=== PATIENT | female | born 1985 | race African-American/Black ===

== ENCOUNTER 2020-02-28 09:26 | Emergency (ER) | payer SELFPAY ==
[2020-02-28 09:27] VITALS: BP 158/116; PULSE 92; RESP 16; TEMP 36.3; O2SAT 99; BMI 35.4
--- NOTE | 2020-02-28 09:34 | US_ITS ---
WS: [id number] Gallbladder and right upper quadrant ultrasound, 02/28/2020 Clinical Data: abd pain Comparison: None. Findings: The gallbladder shows acoustic shadowing from a stone. The wall measures 0.2 cm with no pericholecyst ic fluid. The gallbladder is contracted but the patient ate 30 minutes before the exam. The common bi le duct is 0.5 cm and there are no intrahepatic ductal abnormalities. Liver shows no cysts, masses or dilated intrahepatic ducts. The pancreas is not obscured by overlying bowel gas and no cyst, pseudocyst, or evidence of pancreati tis is noted. Right kidney measures 9.4 cm and no cyst, masses or hydronephrosis can be seen. The aorta and inferior vena cava show no vascular abnormalities. US/US gall bladder [id number] Impression: 1. Cholelithiasis. 2. Contracted gallbladder.
--- NOTE | 2020-02-28 09:34 | W.ED.ABDPA2 ---
HPI - Abdominal Pain General: Chief Complaint: Abdominal Pain Stated Complaint: ABDOMEN PAIN Time Seen by Provider: 02/28/20 09:27 Source: patient Mode of arrival: ambulatory Limitations: no limitations History of Present Illness: HPI narrative: 34-year-old female states she has been having abdominal pain over the last 6 months. States the pain comes and goes and seems to be worse at night and also after eating. States pain is mainly right upper quadrant. She denies any pain currently. She has no nausea currently. She denies any fevers. She states that last night her pain was a 7 out of 10. MD elicited complaint: abdominal pain Associated Symptoms: Denies chills, dysuria and fever(s) Review of Systems Const: Denies: fever(s), chills, body aches or change in appetite Eyes: Denies: blurry vision or eye discomfort ENMT: Denies: throat pain or dental pain Card: Denies: chest pain Resp: Denies: dyspnea GI: Reports: abdominal pain : Denies: dysuria Musc: Denies: neck pain or back pain Skin/Breast: Denies: rash Neuro: Denies: headache(s) Psych: Denies: depression Doron/Lymph: Denies: easy bruising All/Imm: Denies: urticaria Physical Exam Const: COMMON NORMALS: no acute distress, patient oriented x3 and healthy appearing HENMT: COMMON NORMALS: normocephalic and atraumatic HEAD & SCALP: normocephalic and atraumatic Eye: COMMON NORMALS: Equal, round and reactive pupils present and EOMs intact bilaterally PUPIL: Yes Equal, round and reactive pupils present Neck/C-Spine: COMMON NORMALS: full ROM and supple Chest: COMMONS NORMALS: normal inspection of the chest and normal palpation of entire chest wall Resp: COMMON NORMALS: normal respiratory effort, No retractions, No use of accessory muscles and clear to auscultation bilaterally AUSCULTATION: clear to auscultation bilaterally Cardio: COMMON NORMALS: regular rate, regular rhythm and No murmurs present (Cardio) RATE: regular rate RHYTHM: regular rhythm GI: COMMON NORMALS: Normal to inspection, nondistended, normoactive bowel sounds present, Soft to palpation, non-tender and no masses PALPATION: Yes Soft to palpation Extremity: COMMON NORMALS: normal to inspection and full ROM Neuro: COMMON NORMALS: patient oriented x3, moves all extremities and no focal motor deficits Psych: COMMON NORMALS: mental status grossly normal, Normal thought process present and cooperative THOUGHT PROCESS: Normal thought process present Skin: COMMON NORMALS: no rashes or lesions noted and no wounds GENERAL SKIN EXAM: no rashes or lesions noted Course Vital Signs: Vital signs: Vital Signs Temperature 97.3 F L 02/28/20 09:27 Pulse Rate 92 02/28/20 09:54 Respiratory Rate 15 02/28/20 09:54 Blood Pressure 128/87 02/28/20 09:54 Pulse Oximetry 97 02/28/20 09:54 MDM - Abdominal Pain MDM Narrative: Medical decision making narrative: 34-year-old presents here with abdominal pain and ultrasound showed likely gallstones. Her pain is consistent with biliary colic. She has no signs of cholecystitis. She has been pain-free here and exam here is benign. We will set her up with surgery follow-up and she is to return if worsening. She understands and agrees to plan. Lab Data: Labs: Lab Results 02/28/20 02/28/20 02/28/20 Range/Units 09:39 09:50 09:50 WBC 7.8 (4.0-10.0) 10^3/ uL RBC 5.05 (4.1-5.3) 10^6/u L Hgb 13.4 (11.5-15.3) g/dL Hct 42.6 (37.0-47.0) % MCV 84.4 (81-99) fL MCH 26.5 L (28.0-34.0) pg MCHC 31.5 (30.0-36.0) g/dL RDW 13.4 (12.1-15.1) % Plt Count 357 (130-400) 10^3/c mm MPV 9.7 (7.4-10.4) fL Neut % (Auto) 34.8 % Lymph % (Auto) 47.7 % [place] % (Auto) 7.1 % Eos % (Auto) 9.4 % Baso % (Auto) 0.6 % Neut # (Auto) 2.70 (1.8-7.7) 10^3/u L Lymph # (Auto) 3.7 (0.8-4.8) 10^3/u L [place] # (Auto) 0.6 (0.2-0.9) 10^3/u L Eos # (Auto) 0.7 (0.0-0.8) 10^3/u L Baso # (Auto) 0.1 (0.0-0.1) 10^3/u L Nucleated RBC % (a uto) 0 % Nucleated RBCs # 0.0 /100WBC Sodium 138 (136-145) mmol/L Potassium 4.0 (3.5-5.1) mmol/L Chloride 103 (98-107) mmol/L Carbon Dioxide 24 (22-29) mmol/L Anion Gap 15.0 (5-19) BUN 9 (6-20) mg/dL Creatinine 1.0 H (0.5-0.9) mg/dL GFR Calculation 77.3 L (90-130) mL/min Glucose 115 (65-115) mg/dL Calculated Osmolal ity 286 (285-295) mOsm/k g Calcium 9.0 (8.5-10.5) mg/dL Total Bilirubin 0.3 (0.15-1.2) mg/dL AST 14 (0-32) U/L ALT 9 (0-33) U/L Alkaline Phosphata se 66 (35-105) IU/L Total Protein 8.0 (6.6-8.7) g/dL Albumin 4.1 (3.5-5.2) g/dL Globulin 3.9 (1.3-4.6) g/dL Lipase 13 (13-60) U/L HCG, Qual (Negative) Urine Color Yellow (Yellow) Urine Appearance Clear (CLEAR) Urine pH 6 (5-7) Ur Specific Gravit y 1.015 (1.005-1.030) Urine Protein Neg (Negative) Urine Glucose (UA) Norm (Normal) Urine Ketones Negative (Negative) Urine Blood Neg (Negative) Urine Nitrate Negative (Negative) Urine Bilirubin Neg (Negative) Urine Urobilinogen Neg (Negative) mg/dL Ur Leukocyte Edie ase Negative (Negative) 02/28/20 Range/Units 09:50 WBC (4.0-10.0) 10^3/ uL RBC (4.1-5.3) 10^6/u L Hgb (11.5-15.3) g/dL Hct (37.0-47.0) % MCV (81-99) fL MCH (28.0-34.0) pg MCHC (30.0-36.0) g/dL RDW (12.1-15.1) % Plt Count (130-400) 10^3/c mm MPV (7.4-10.4) fL Neut % (Auto) % Lymph % (Auto) % [place] % (Auto) % Eos % (Auto) % Baso % (Auto) % Neut # (Auto) (1.8-7.7) 10^3/u L Lymph # (Auto) (0.8-4.8) 10^3/u L [place] # (Auto) (0.2-0.9) 10^3/u L Eos # (Auto) (0.0-0.8) 10^3/u L Baso # (Auto) (0.0-0.1) 10^3/u L Nucleated RBC % (a uto) % Nucleated RBCs # /100WBC Sodium (136-145) mmol/L Potassium (3.5-5.1) mmol/L Chloride (98-107) mmol/L Carbon Dioxide (22-29) mmol/L Anion Gap (5-19) BUN (6-20) mg/dL Creatinine (0.5-0.9) mg/dL GFR Calculation (90-130) mL/min Glucose (65-115) mg/dL Calculated Osmolal ity (285-295) mOsm/k g Calcium (8.5-10.5) mg/dL Total Bilirubin (0.15-1.2) mg/dL AST (0-32) U/L ALT (0-33) U/L Alkaline Phosphata se (35-105) IU/L Total Protein (6.6-8.7) g/dL Albumin (3.5-5.2) g/dL Globulin (1.3-4.6) g/dL Lipase (13-60) U/L HCG, Qual Negative (Negative) Urine Color (Yellow) Urine Appearance (CLEAR) Urine pH (5-7) Ur Specific Gravit y (1.005-1.030) Urine Protein (Negative) Urine Glucose (UA) (Normal) Urine Ketones (Negative) Urine Blood (Negative) Urine Nitrate (Negative) Urine Bilirubin (Negative) Urine Urobilinogen (Negative) mg/dL Ur Leukocyte Edie ase (Negative) Discharge Plan Discharge Patient Disposition: Home Clinical Impression: Abdominal pain Qualifiers: Abdominal location: right upper quadrant Qualified Code(s): R10.11 - Right upper quadrant pain Condition: Stable Prescriptions: [place] 5-325 mg tablet 1 tab PO Q6H PRN (Reason: pain) Qty: 14 RF: 0 ondansetron 4 mg tablet,disintegrating 4 mg PO Q6H PRN (Reason: nausea and vomiting) Qty: 14 RF: 0 No Action Probiotic 3 billion cell Capsule 3,000 mmu cells PO BID RF: 0 Discharge Orders: Discharge Order (Routine); Ordered 02/28/20 Ordered By: Dee Sheikh Referrals: Felice Tran MD [Physician] - 1-3 days Discharge Diet: Advance as tolerated Discharge Activity: Resume usual activity Patient Instructions: Abdominal Pain (ED) Coding Level of Care Code ED Ocular Care Technologist for Chg Fwd Exam Comprehensive
[2020-02-28 09:54] VITALS: BP 128/87; PULSE 92; RESP 15; O2SAT 97
[2020-02-28 09:57] LABS: Add Urine Microscopic? NO
[2020-02-28 10:00] LABS: Basophils # 0.1 10^3/uL (0.0-0.1); Basophils % 0.6 %; Eosinophils # 0.7 10^3/uL (0.0-0.8); Eosinophils % 9.4 %; Hematocrit 42.6 % (37.0-47.0); Hemoglobin 13.4 g/dL (11.5-15.3); Lymphocytes # 3.7 10^3/uL (0.8-4.8); Lymphocytes % 47.7 %; Mean Corpuscular HGB Conc 31.5 g/dL (30.0-36.0); Mean Corpuscular Hemoglobin 26.5 pg (28.0-34.0); Mean Corpuscular Volume 84.4 fL (81-99); Mean Platelet Volume 9.7 fL (7.4-10.4); Monocytes # 0.6 10^3/uL (0.2-0.9); Monocytes % 7.1 %; Neutrophils % 34.8 %; Nucleated Red Blood Cells % 0 %; Platelet Count 357 10^3/cmm (130-400); Red Blood Count 5.05 10^6/uL (4.1-5.3); Red Cell Distribution Width 13.4 % (12.1-15.1); White Blood Count 7.8 10^3/uL (4.0-10.0)
[2020-02-28 10:09] LABS: Bilirubin Urine Neg (Negative); Blood Urine Neg (Negative); Glucose Urine UA Norm (Normal); Ketones Urine Negative (Negative); Leukocyte Esterase Urine Negative (Negative); Nitrate Urine Negative (Negative); Protein Urine Neg (Negative); Specific Gravity, Urine 1.015 (1.005-1.030); Urine Appearance Clear (CLEAR); Urine Color Yellow (Yellow); Urobilinogen Urine Neg (Negative); pH Urine 6 (5-7)
[2020-02-28 10:12] LABS: HCG, Serum Qual Negative (Negative)
[2020-02-28 10:17] LABS: Alanine Aminotransferase 9 U/L (0-33); Albumin Level 4.1 g/dL (3.5-5.2); Alkaline Phosphatase 66 IU/L (35-105); Aspartate Amino Transferase 14 U/L (0-32); Blood Urea Nitrogen 9 mg/dL (6-20); Carbon Dioxide 24 mmol/L (22-29); Chloride 103 mmol/L (98-107); Globulin 3.9 g/dL (1.3-4.6); Glomerular Filtration Rate 77.3 mL/min (90-130); Glucose 115 mg/dL (65-115); Lipase 13 U/L (13-60); Osmolality Calculated 286 mOsm/kg (285-295); Sodium 138 mmol/L (136-145); Total Bilirubin 0.3 mg/dL (0.15-1.2)
[2020-02-28 10:35] VITALS: BP 116/88; PULSE 103; RESP 20; O2SAT 97
--- NOTE | 2020-02-28 11:44 | DCPLANNER ---
manager hardware had message to schedule a follow up appointment for patient with Dr. Tran. manager hardware called patient at [phone], was unable to speak with patient at this time, a voicemail was left for patient to return nurse case management phone call.
== END 2020-02-28 10:36 | disposition home or self-care (01) ==
PROVIDERS: Emergency Provider Emergency Medicine
DX: R10.11 Right upper quadrant pain (principal)
CPT/HCPCS: 12345; 76705; 80053; 81003; 83690; 84703; 85025; 99282; 99283

== ENCOUNTER 2021-02-23 11:34 | Emergency (ER) | payer SELFPAY ==
[2021-02-23] VITALS (18 sets, daily range): BP systolic 102–151; BP diastolic 73–107; PULSE 78–81; RESP 16–20; TEMP 36.8; O2SAT 95–100
--- NOTE | 2021-02-23 12:24 | ED_ITS ---
Documented by User: CELIO Brice 02/23/21 12:33 HPI - Abdominal Pain General: Chief Complaint: Abdominal Pain Stated Complaint: RUQ ABD PAIN, BURNING Time Seen by Provider: 02/23/21 12:19 History of Present Illness: HPI narrative: Patient is a 35-year-old female comes to the ED with abdominal pain nausea/vomiting and diarrhea. Patient says symptoms started approximately 2 days ago. She has had symptoms like this in the past and has been told that certain gallbladder. Says the pain worsens after she eats. Says she has vomited multiple times. Her pain is in the right upper quadrant of her abdomen and she rates it a 9 out of 10. She tried taking some Tylenol and Motrin to help with pain but it has not improved the pain. Denies any fever, chills, chest pain, hematuria, dysuria, blood in stool and bloody emesis. Associated Symptoms: Reports diarrhea, nausea and vomiting; Denies chills, constipation, dysuria, fever(s), hematochezia and hematuria Related Data: Date of Last Menstrual Period: 01/28/21 Review of Systems Const: Reports: change in appetite (decreased); Denies: fever(s), chills or fatigue Eyes: Denies: change in vision or eye discomfort ENMT: Denies: throat pain, odynophagia, nasal discharge or nasal congestion Card: Denies: chest pain, palpitations, edema, swelling of feet/ankles, dyspnea on exertion or orthopnea Resp: Denies: dyspnea, productive cough or non-productive cough GI: Reports: abdominal pain, nausea, vomiting and diarrhea; Denies: constipation or hematochezia : Denies: flank pain, dysuria or hematuria Musc: Denies: neck pain, back pain or extremity swelling Skin/Breast: Denies: rash or new lesions Neuro: Denies: headache(s), numbness in extremities or weakness in extremities [facility] Female Reproductive History: Date of last menstrual period: 01/28/21 Physical Exam Const: COMMON NORMALS: patient oriented x3 HENMT: COMMON NORMALS: normocephalic HEAD & SCALP: normocephalic MOUTH: Normal oral and palatal mucosa present THROAT: posterior oropharynx normal and uvula midline Neck/C-Spine: COMMON NORMALS: supple GENERAL: Yes normal visual inspection Resp: COMMON NORMALS: normal respiratory effort, No retractions, No use of accessory muscles and clear to auscultation bilaterally AUSCULTATION: clear to auscultation bilaterally Cardio: COMMON NORMALS: regular rate, regular rhythm, S1 normal heart sound present, S2 normal heart sound present, No gallops present (Cardio), No clicks present (Cardio), No murmurs present (Cardio) and Peripheral pulses 2+ throughout RATE: regular rate RHYTHM: regular rhythm HEART SOUNDS: S1 normal heart sound present and S2 normal heart sound present PERIPHERAL PULSES: Peripheral pulses 2+ throughout GI: COMMON NORMALS: Normal to inspection, nondistended, normoactive bowel sounds present, Soft to palpation and no masses INSPECTION: Yes central obesity PALPATION: Yes Soft to palpation and Yes Tenderness to palpation present (GI) Details: RUQ (positive chery's sign) : COMMON NORMALS: Yes no CVA tenderness BLADDER/KIDNEY EXAM: Yes no CVA t enderness Back/Pelvis: COMMON NORMALS: no CVA tenderness Neuro: COMMON NORMALS: patient oriented x3 GAIT: Yes Normal gait present Course Vital Signs: Vital signs: Vital Signs Temperature 98.3 F 02/23/21 12:11 Pulse Rate 81 02/23/21 17:40 Respiratory Rate 19 H 02/23/21 17:40 Blood Pressure 138/85 02/23/21 17:40 Pulse Oximetry 98 02/23/21 17:40 MDM - Abdominal Pain MDM Narrative: Medical decision making narrative: I performed the initial history physical exam and lab and imaging work-up on patient. And then transferred patient care over to Dr. Gary for further evaluation.-Jd Mojica PA-C Lab Data: Labs: Lab Results 02/23/21 02/23/21 02/23/21 12:15 12:15 12:15 WBC 8.6 10^3/uL 10^3/ uL (4.0-10.0) RBC 5.50 10^6/uL H 10 ^6/uL (4.1-5.3) Hgb 14.6 g/dL g/dL (11.5-15.3) Hct 46.1 % % (37.0-47.0) MCV 83.8 fl fl (81-99) MCH 26.5 pg L pg (28.0-34.0) MCHC 31.7 g/dL g/dL (30.0-36.0) RDW 13.8 % % (12.1-15.1) Plt Count 356 10^3/cmm 10^3 /cmm (130-400) MPV 10.1 fL fL (7.4-10.4) Neut % (Auto) 67.7 % % Lymph % (Auto) 22.1 % % [place] % (Auto) 7.4 % % Eos % (Auto) 2.0 % % Baso % (Auto) 0.4 % % Neut # (Auto) 5.81 10^3/uL 10^3 /uL (1.8-7.7) Lymph # (Auto) 1.9 10^3/uL 10^3/ uL (0.8-4.8) [place] # (Auto) 0.6 10^3/uL 10^3/ uL (0.2-0.9) Eos # (Auto) 0.2 10^3/uL 10^3/ uL (0.0-0.8) Baso # (Auto) 0.0 10^3/uL 10^3/ uL (0.0-0.1) Nucleated RBC % (a uto) 0 % % Nucleated RBCs # 0.0 /100WBC /100W BC Sodium 138 mmol/L mmol/L (136-145) Potassium 4.5 mmol/L mmol/L (3.5-5.1) Chloride 104 mmol/L mmol/L (98-107) Carbon Dioxide 24 mmol/L mmol/L (22-29) Anion Gap 14.5 (5-19) BUN 12 mg/dL mg/dL (6-20) Creatinine 1.0 mg/dL H mg/dL (0.5-0.9) GFR Calculation 76.8 mL/min L mL/ min (90-130) Glucose 110 mg/dL mg/dL (65-115) Calculated Osmolal ity 286 mOsm/kg mOsm/ kg (285-295) Calcium 9.6 mg/dL mg/dL (8.5-10.5) Total Bilirubin 0.3 mg/dL mg/dL (0.15-1.2) AST 15 U/L U/L (0-32) ALT 11 U/L U/L (0-33) Alkaline Phosphata se 83 IU/L IU/L (35-105) Total Protein 7.9 g/dL g/dL (6.6-8.7) Albumin 4.4 g/dL g/dL (3.5-5.2) Globulin 3.5 g/dL g/dL (1.3-4.6) Lipase 16 U/L U/L (13-60) HCG, Qual Negative (Negative) Urine Color Urine Appearance Urine pH Ur Specific Gravit y Urine Protein Urine Glucose (UA) Urine Ketones Urine Blood Urine Nitrate Urine Bilirubin Urine Urobilinogen Ur Leukocyte Edie ase 02/23/21 16:13 WBC RBC Hgb Hct MCV MCH MCHC RDW Plt Count MPV Neut % (Auto) Lymph % (Auto) [place] % (Auto) Eos % (Auto) Baso % (Auto) Neut # (Auto) Lymph # (Auto) [place] # (Auto) Eos # (Auto) Baso # (Auto) Nucleated RBC % (a uto) Nucleated RBCs # Sodium Potassium Chloride Carbon Dioxide Anion Gap BUN Creatinine GFR Calculation Glucose Calculated Osmolal ity Calcium Total Bilirubin AST ALT Alkaline Phosphata se Total Protein Albumin Globulin Lipase HCG, Qual Urine Color Yellow (Yellow) Urine Appearance Clear (CLEAR) Urine pH 5 (5-7) Ur Specific Gravit y 1.010 (1.005-1.030) Urine Protein Neg (Negative) Urine Glucose (UA) Norm (Normal) Urine Ketones Negative (Negative) Urine Blood Neg (Negative) Urine Nitrate Negative (Negative) Urine Bilirubin Neg (Negative) Urine Urobilinogen Norm mg/dL mg/dL (Negative) Ur Leukocyte Edie ase Negative (Negative) Discharge Plan Discharge Patient Disposition: Home Clinical Impression: Biliary colic, Cholelithiasis Condition: Stable Prescriptions: New hydrocodone-acetaminophen 5-325 mg tablet 1 tab PO Q6H PRN (Reason: pain) Qty: 20 RF: 0 Zofran 4 mg tablet 4 mg PO Q6H PRN (Reason: nausea and vomiting) Qty: 20 RF: 0 No Action hydrocodone-acetaminophen [[place]] 5-325 mg tablet 1 tab PO Q6H PRN (Reason: pain) Qty: 14 RF: 0 aspirin 325 mg Tablet 325 mg PO Q4H PRN (Reason: Pain) RF: 0 Nexium 20 mg Capsule,Delayed Release(Dr/Ec) 20 mg PO DAILY RF: 0 Probiotic 2 cap PO DAILY RF: 0 Discharge Orders: Discharge ED (Routine); Ordered 02/23/21 Ordered By: Marcio Gary Discharge Diet: As Directed Patient Instructions: Opioid Safety Activity Restrictions/Additional Instructions: customer marketing manager will make arrangements for you to have a HIDA scan and evaluation by a general surgeon. Coding Level of Care Code ED Busgirl for Chg Fwd Exam Comprehensive Documented by User: Marcio Gary, 02/24/21 06:40 HPI - Abdominal Pain General: Chief Complaint: Abdominal Pain Stated Complaint: RUQ ABD PAIN, BURNING Time Seen by Provider: 02/23/21 12:19 History of Present Illness: HPI narrative: 35-year-old female presents emergency room complaint of epigastric right upper quadrant pain. States she is had this for the last several months a year ago she had a ultrasound of her gallbladder which showed cholelithiasis but no evidence of acute cholecystitis she is not pursued any further she noted that greasy foods seem to trigger it not eating does seem to relieve it is also accompanied by diarrhea and vomiting she denies any hematochezia melena hematemesis. She is not having dysuria urgency or frequency no fevers. MD elicited complaint: abdominal pain Onset (ago): month(s) Pain Consistency: intermittent Location: Epigastric and RUQ Severity: moderate Quality: cramping Radiation: RUQ Exacerbating factors: eating ([place] foods) Relieving factors: nothing Associated Symptoms: Reports bloating, change in bowel habits, nausea and vomiting; Denies anorexia, belching, change in stool character, chills, coffee ground emesis, constipation, GI cramping, diarrhea, dyspepsia, dysuria, excessive flatus, fever(s), heartburn, hematochezia, hematuria, hematemesis, fecal incontinence, loose stools, melena, poor appetite and syncope Review of Systems Const: Denies: fever(s) or chills ENMT: Denies: throat pain, ear or mastoid pain, nasal discharge or nasal congestion Card: Denies: syncope Resp: Denies: dyspnea, productive cough or non-productive cough GI: Reports: nausea, vomiting, bloating and change in bowel habits; Denies: hematemesis, coffee ground emesis, heartburn, diarrhea, constipation, GI cramping, belching, excessive flatus, fecal incontinence, change in stool character, hematochezia or melena : Denies: dysuria or hematuria Skin/Breast: Denies: rash or pruritus Physical Exam Const: COMMON NORMALS: no acute distress GENERAL APPEARANCE: cooperative and comfortable ORIENTATION/CONSCIOUSNESS: Yes awake, Yes oriented to person, Yes oriented to place and Yes oriented to time HENMT: COMMON NORMALS: normocephalic, atraumatic and hearing grossly normal bilaterally HEAD & SCALP: normocephalic and atraumatic Neck/C-Spine: COMMON NORMALS: no JVD Resp: COMMON NORMALS: normal respiratory effort, No retractions, No use of accessory muscles and clear to auscultation bilaterally AUSCULTATION: clear to auscultation bilaterally Cardio: COMMON NORMALS: no JVD, regular rate, regular rhythm and No murmurs present (Cardio) RATE: regular rate RHYTHM: regular rhythm GI: PALPATION: Yes Tenderness to palpation present (GI) Details: RUQ and No Guarding due to palpation present (GI) Extremity: COMMON NORMALS: normal to inspection, capillary refill normal, no clubbing, cyanosis or edema, no calf tenderness and no pedal edema Neuro: SENSORIUM/ORIENTATION: Yes oriented to person, Yes oriented to place and Yes oriented to time Skin: COMMON NORMALS: no rashes or lesions noted GENERAL SKIN EXAM: no rashes or lesions noted Course Vital Signs: Vital signs: Vital Signs Temperature 98.3 F 02/23/21 12:11 Pulse Rate 81 02/23/21 17:40 Respiratory Rate 19 H 02/23/21 17:40 Blood Pressure 138/85 02/23/21 17:40 Pulse Oximetry 98 02/23/21 17:40 MDM - Abdominal Pain MDM Narrative: Medical decision making narrative: CT shows gallstones without any definitive obstruction but there is dilation of the common bile duct not present previously. MRCP done there is no acute cholecystitis and there is no choledocholithiasis. Patient certainly does have cholelithiasis I suspect she has some biliary dysfunction. We will can go ahead and discharge her home bland diet set up to see general surgery as a follow-up and will also however use promethazine and hydrocodone as needed. customer marketing manager will make arrangements. Lab Data: Labs: Lab Results 02/23/21 02/23/21 02/23/21 12:15 12:15 12:15 WBC 8.6 10^3/uL 10^3/ uL (4.0-10.0) RBC 5.50 10^6/uL H 10 ^6/uL (4.1-5.3) Hgb 14.6 g/dL g/dL (11.5-15.3) Hct 46.1 % % (37.0-47.0) MCV 83.8 fl fl (81-99) MCH 26.5 pg L pg (28.0-34.0) MCHC 31.7 g/dL g/dL (30.0-36.0) RDW 13.8 % % (12.1-15.1) Plt Count 356 10^3/cmm 10^3 /cmm (130-400) MPV 10.1 fL fL (7.4-10.4) Neut % (Auto) 67.7 % % Lymph % (Auto) 22.1 % % [place] % (Auto) 7.4 % % Eos % (Auto) 2.0 % % Baso % (Auto) 0.4 % % Neut # (Auto) 5.81 10^3/uL 10^3 /uL (1.8-7.7) Lymph # (Auto) 1.9 10^3/uL 10^3/ uL (0.8-4.8) [place] # (Auto) 0.6 10^3/uL 10^3/ uL (0.2-0.9) Eos # (Auto) 0.2 10^3/uL 10^3/ uL (0.0-0.8) Baso # (Auto) 0.0 10^3/uL 10^3/ uL (0.0-0.1) Nucleated RBC % (a uto) 0 % % Nucleated RBCs # 0.0 /100WBC /100W BC Sodium 138 mmol/L mmol/L (136-145) Potassium 4.5 mmol/L mmol/L (3.5-5.1) Chloride 104 mmol/L mmol/L (98-107) Carbon Dioxide 24 mmol/L mmol/L (22-29) Anion Gap 14.5 (5-19) BUN 12 mg/dL mg/dL (6-20) Creatinine 1.0 mg/dL H mg/dL (0.5-0.9) GFR Calculation 76.8 mL/min L mL/ min (90-130) Glucose 110 mg/dL mg/dL (65-115) Calculated Osmolal ity 286 mOsm/kg mOsm/ kg (285-295) Calcium 9.6 mg/dL mg/dL (8.5-10.5) Total Bilirubin 0.3 mg/dL mg/dL (0.15-1.2) AST 15 U/L U/L (0-32) ALT 11 U/L U/L (0-33) Alkaline Phosphata se 83 IU/L IU/L (35-105) Total Protein 7.9 g/dL g/dL (6.6-8.7) Albumin 4.4 g/dL g/dL (3.5-5.2) Globulin 3.5 g/dL g/dL (1.3-4.6) Lipase 16 U/L U/L (13-60) HCG, Qual Negative (Negative) Urine Color Urine Appearance Urine pH Ur Specific Gravit y Urine Protein Urine Glucose (UA) Urine Ketones Urine Blood Urine Nitrate Urine Bilirubin Urine Urobilinogen Ur Leukocyte Edie ase 02/23/21 16:13 WBC RBC Hgb Hct MCV MCH MCHC RDW Plt Count MPV Neut % (Auto) Lymph % (Auto) [place] % (Auto) Eos % (Auto) Baso % (Auto) Neut # (Auto) Lymph # (Auto) [place] # (Auto) Eos # (Auto) Baso # (Auto) Nucleated RBC % (a uto) Nucleated RBCs # Sodium Potassium Chloride Carbon Dioxide Anion Gap BUN Creatinine GFR Calculation Glucose Calculated Osmolal ity Calcium Total Bilirubin AST ALT Alkaline Phosphata se Total Protein Albumin Globulin Lipase HCG, Qual Urine Color Yellow (Yellow) Urine Appearance Clear (CLEAR) Urine pH 5 (5-7) Ur Specific Gravit y 1.010 (1.005-1.030) Urine Protein Neg (Negative) Urine Glucose (UA) Norm (Normal) Urine Ketones Negative (Negative) Urine Blood Neg (Negative) Urine Nitrate Negative (Negative) Urine Bilirubin Neg (Negative) Urine Urobilinogen Norm mg/dL mg/dL (Negative) Ur Leukocyte Edie ase Negative (Negative) Discharge Plan Discharge Patient Disposition: Home Clinical Impression: Biliary colic, Cholelithiasis Condition: Stable Prescriptions: New hydrocodone-acetaminophen 5-325 mg tablet 1 tab PO Q6H PRN (Reason: pain) Qty: 20 RF: 0 Zofran 4 mg tablet 4 mg PO Q6H PRN (Reason: nausea and vomiting) Qty: 20 RF: 0 No Action hydrocodone-acetaminophen [[place]] 5-325 mg tablet 1 tab PO Q6H PRN (Reason: pain) Qty: 14 RF: 0 aspirin 325 mg Tablet 325 mg PO Q4H PRN (Reason: Pain) RF: 0 Nexium 20 mg Capsule,Delayed Release(Dr/Ec) 20 mg PO DAILY RF: 0 Probiotic 2 cap PO DAILY RF: 0 Discharge Orders: Discharge ED (Routine); Ordered 02/23/21 Ordered By: Marcio Gary Discharge Diet: As Directed Patient Instructions: Opioid Safety Activity Restrictions/Additional Instructions: customer marketing manager will make arrangements for you to have a HIDA scan and evaluation by a general surgeon. Coding Level of Care Code ED Busgirl for Chg Fwd Exam Comprehensive
--- NOTE | 2021-02-23 12:27 | US_ITS ---
WS: [id number] ULTRASOUND ABDOMEN LIMITED CLINICAL INFORMATION: RUQ abdominal pain, n/v/d COMPARISON: None. FINDINGS: Liver Size: Enlarged Craniocaudal length: 18.3 cm. Echogenicity: Normal. Surface nodularity: None. Mass (size and location): None. Bile ducts Intrahepatic ducts: Normal. Common bile duct diameter: 1.1 cm Dilated Gallbladder Cholelithiasis Gallstones: Present Gallbladder sludge: None. Gallbladder wall thickening: None. Pericholecystic fluid: None. Sonographic Marie sign: Absent. Pancreas Not well seen due to bowel gas Right kidney: Normal. Hydronephrosis: None. Size: 10.1 cm x 4.3 cm x 4.1 cm. Abdominal aorta and IVC Visualized portions are normal. Ascites: None. US/US gall bladder [id number] IMPRESSION: 1. Hepatomegaly with diffuse fatty infiltration. 2. Cholelithiasis with enlarged common bile duct measuring 11 mm. No gallbladd er wall thickening or pericholecystic fluid. This can be further evaluated with MRCP to assess for choledocholithiasis. 3. No hydronephrosis in right kidney.
[2021-02-23] MEDS: ondansetron 2 mg/ML SDV 2 mL 4 MG IVP (12:43)
[2021-02-23] MEDS: morphine 4 mg/mL SDV 1 mL IVP (12:43)
[2021-02-23] MEDS: sodium chloride 0.9% 1,000 ML 999 ML IV (12:43)
[2021-02-23 12:44] LABS: Basophils % 0.4 %; Eosinophils # 0.2 10^3/uL (0.0-0.8); Hematocrit 46.1 % (37.0-47.0); Hemoglobin 14.6 g/dL (11.5-15.3); Lymphocytes # 1.9 10^3/uL (0.8-4.8); Lymphocytes % 22.1 %; Mean Corpuscular HGB Conc 31.7 g/dL (30.0-36.0); Mean Corpuscular Hemoglobin 26.5 pg (28.0-34.0); Mean Corpuscular Volume 83.8 fl (81-99); Mean Platelet Volume 10.1 fL (7.4-10.4); Monocytes # 0.6 10^3/uL (0.2-0.9); Monocytes % 7.4 %; Neutrophils # 5.81 10^3/uL (1.8-7.7); Neutrophils % 67.7 %; Nucleated Red Blood Cells % 0 %; Platelet Count 356 10^3/cmm (130-400); Red Cell Distribution Width 13.8 % (12.1-15.1); White Blood Count 8.6 10^3/uL (4.0-10.0)
[2021-02-23 13:00] LABS: Alanine Aminotransferase 11 U/L (0-33); Albumin Level 4.4 g/dL (3.5-5.2); Alkaline Phosphatase 83 IU/L (35-105); Anion Gap 14.5 (5-19); Aspartate Amino Transferase 15 U/L (0-32); Blood Urea Nitrogen 12 mg/dL (6-20); Calcium 9.6 mg/dL (8.5-10.5); Carbon Dioxide 24 mmol/L (22-29); Chloride 104 mmol/L (98-107); Globulin 3.5 g/dL (1.3-4.6); Glomerular Filtration Rate 76.8 mL/min (90-130); Glucose 110 mg/dL (65-115); Lipase 16 U/L (13-60); Osmolality Calculated 286 mOsm/kg (285-295); Potassium 4.5 mmol/L (3.5-5.1); Sodium 138 mmol/L (136-145); Total Bilirubin 0.3 mg/dL (0.15-1.2); Total Protein 7.9 g/dL (6.6-8.7)
[2021-02-23 13:11] LABS: HCG, Serum Qual Negative (Negative)
--- NOTE | 2021-02-23 13:16 | CTR_ITS ---
PROCEDURE INFORMATION: Exam: CT Abdomen And Pelvis With Contrast Exam date and time: 02/23/2021 1:16 PM Age: 35 years old Clinical indication: Periumbilical abdominal pain with nausea, vomiting and diarrhea this morning. TECHNIQUE: Imaging protocol: Computed tomography of the abdomen and pelvis with contrast. Radiation optimization: All CT scans at this facility use at least one of these dose optimization techniques: automated exposure control; mA and/or kV adjustment per patient size (includes targeted exams where dose is matched to clinical indication); or iterative reconstruction. Contrast material: OMNI 300; Contrast volume: 95 ml; Contrast route: INTRAVENOUS (IV); COMPARISON: US gall bladder [id number] 02/23/2021 12:53 PM RADIATION DOSE METRICS: Total DLP (mGy-cm): 1786.38 FINDINGS: Lungs: The lung bases are unremarkable. Heart: No pericardial effusion. No hiatal hernia. Liver: The liver is enlarged measuring 20 cm. Gallbladder and bile ducts: Cholelithiasis without definite gallbladder wall thickening. Consider ultrasound to further assess if clinically warranted. Pancreas: The pancreas is unremarkable. Spleen: The spleen is unremarkable. Adrenal glands: The adrenal glands are unremarkable. Kidneys and ureters: The kidneys are unremarkable. Stomach and bowel: The stomach and small bowel are unremarkable.; Occasional colonic diverticula without evidence of acute diverticulitis. Appendix: The appendix is unremarkable. Intraperitoneal space: No free intraperitoneal air is seen. There is trace free fluid in the pelvis. Probable corpus luteum cyst in the left ovary measuring 1.7 cm. Vasculature: No abdominal aortic aneurysm. Lymph nodes: A periportal lymph node measures 1.5 x 2.0 cm. The right external iliac lymph node measures 1.0 x 1.5 cm. Urinary bladder: The bladder is partially decompressed. Reproductive: See Intraperitoneal space finding. Bones/joints: No acute fracture is identified. Soft tissues: Small fat containing umbilical hernia. CT/CT abdomen pelvis w con* [id number] IMPRESSION: 1. Probable corpus luteum cyst in the left ovary. Trace free fluid in the pelvis may reflect cyst leak or rupture. Consider pelvic ultrasound further assess clinically warranted. 2. Cholelithiasis without definite gallbladder wall thickening. Consider ultrasound to further assess if clinically warranted. 3. Hepatomegaly with periportal lymphadenopathy. 4. Occasional colonic diverticula without evidence of acute diverticulitis. 5. Mild right pelvic lymphadenopathy. Radiation Dose CTDIVOL = (mGy): DLP = 1786.38 (mGy-cm)
[2021-02-23] MEDS: iohexol 300 mg/mL 100 mL Btl IV (13:34)
--- NOTE | 2021-02-23 14:13 | MR_ITS ---
WS: [id number] MRI/MRCP OF THE ABDOMEN WITHOUT GADOLINIUM ENHANCEMENT TECHNIQUE: Thin and thick slab MRCP, Axial T2, Coronal MRCP, Axial Dual Echo, and Axial 2-D Fiesta imaging was obtained. Coronal 2-D Fiesta imaging. CLINICAL INFORMATION: dilated CBD COMPARISON: February 23, 2021 FINDINGS: Hepatomegaly with diffuse fatty infiltration of the liver. Normal portal vein and splenic vein. Marisela lithiasis. Lobulated gallbladder with calculus in the distal gallbladder neck measuring 5 mm. No laura cholecystic fluid or thickening. Additional prominent calculus in the gallbladder body measuring 11 m m. Normal common bile duct. No intrahepatic biliary ductal dilatation. Left renal cyst. No hydronephrosis. Normal caliber abdominal aorta. No pancreatic ductal dilatation. MR/MR MRCP [id number] Impression: 1. 5 mm gallbladder calculus in the gallbladder neck adjacent to the cystic du ct. No gallbladder wall thickening or pericholecystic fluid. 2. Additional prominent gallstone in the body of the gallbladder measuring 11 mm. 3. Normal common bile duct. No intrahepatic biliary ductal dilatation. No evid ence of choledocholithiasis. 4. Mild diffuse fatty infiltration of the liver. 5. Normal pancreatic duct. 6. No other significant findings. Attempted notification Marcio Gary DO at 02/23/2021 3:49 PM.
[2021-02-23 16:58] LABS: Add Urine Microscopic? NO; Charge for UA Resulting for Rev
[2021-02-23 17:01] LABS: Bilirubin Urine Neg (Negative); Blood Urine Neg (Negative); Glucose Urine UA Norm (Normal); Ketones Urine Negative (Negative); Leukocyte Esterase Urine Negative (Negative); Nitrate Urine Negative (Negative); Protein Urine Neg (Negative); Urine Appearance Clear (CLEAR); Urine Color Yellow (Yellow); Urobilinogen Urine Norm (Negative); pH Urine 5 (5-7)
--- NOTE | 2021-02-24 10:21 | DCPLANNER ---
instructional design manager had message to schedule an outpatient HIDA scan for patient and to schedule a follow up appointment for patient with general surgery. instructional design manager faxed signed order to centralized scheduling for HIDA scan, who will call patient with appointment information. instructional design manager also emailed patients information to Jorge at [facility] General Surgery. Patients information will be printed and reviewed. Clinic will call patient with appointment information.
--- NOTE | 2021-02-25 14:20 | DCPLANNER ---
Addendum entered by Velma Adler 06/25/21 16:48: Patient had a follow up appointment scheduled with general surgery - patient did attend appointment. Original Note: Patient has a follow up appointment scheduled for Saturday, March 03 at 10:[address] Chu. Clinic will call patient with appointment information.
--- NOTE | 2021-02-27 11:04 | DCPLANNER ---
case management manager called centralized scheduling to confirm that a HIDA scan had been scheduled for patient. case management manager spoke with Ol[facility], was told that centralized scheduling had the order for the scan, but when they called patient to schedule the scan that patient is refusing to give them her insurance information. Patient has a follow up appointment scheduled with general surgery. case management manager called general surgery, spoke with Yifan, informed the clinic that the HIDA scan is not being ordered at this time, due to patient not giving centralized scheduling insurance information.
== END 2021-02-23 17:44 | disposition home or self-care (01) ==
PROVIDERS: Physician Assistant; Emergency Provider Family Medicine
DX: K80.20 Calculus of gallbladder without cholecystitis without obstruction (principal); Z79.82 Long term (current) use of aspirin
CPT/HCPCS: 74177; 74181; 76705; 80053; 81003; 83690; 84703; 85025; 87040; 96361; 96374; 96375; 99284; J2270; J2405; J7030; Q9967

== ENCOUNTER 2023-06-23 20:04 | Emergency (ER) | payer SELFPAY ==
[2023-06-23 20:11] VITALS: BP 129/83; PULSE 77; RESP 18; TEMP 36.6; O2SAT 99; BMI 42.5
[2023-06-23 21:00] LABS: Basophils % 0.6 %; Eosinophils # 0.1 10^3/uL (0.0-0.8); Hematocrit 40.7 % (36-47); Lymphocytes # 1.7 10^3/uL (0.8-4.8); Lymphocytes % 25.3 %; Mean Corpuscular HGB Conc 30.7 g/dL (30-55); Mean Corpuscular Hemoglobin 25.3 pg (27-33); Mean Corpuscular Volume 82.2 fl (85-98); Mean Platelet Volume 9.1 fL (7.4-10.4); Monocytes # 0.4 10^3/uL (0.2-0.9); Neutrophils # 4.46 10^3/uL (1.8-7.7); Neutrophils % 66.7 %; Nucleated Red Blood Cells % 0 %; Platelet Count 374 10^3/cmm (157-399); Red Blood Count 4.95 10^6/uL (3.85-5.65); Red Cell Distribution Width 13.6 % (12.1-15.1); White Blood Count 6.69 10^3/uL (3.29-11.43)
--- NOTE | 2023-06-23 21:17 | USR_ITS ---
PROCEDURE INFORMATION: Exam: US Abdomen, Limited; Right Upper Quadrant Exam date and time: 06/23/2023 10:05 PM Age: 37 years old Clinical indication: Abdominal pain; Other: Ruq pain x 7 hours; Patient HX: Patient was diagnosed with cholielithiasis on CT dated 02/23/21. Nothing done as yet. TECHNIQUE: Imaging protocol: Real time ultrasound of the abdomen with image documentation. Limited exam focused on the right upper quadrant. COMPARISON: US gall bladder [id number] 02/23/2021 12:53 PM FINDINGS: Liver: Normal. No masses. Gallbladder: 2.3 cm gallstone present. Mild diffuse gallbladder wall thickening up to 0.3 cm. No pericholecystic fluid. No biliary dilatation. Negative sonographic Marie's sign reported by the technologist. Biliary ducts: CBD measures 4 mm in diameter. No intrahepatic biliary dilatation. Pancreas: Visualized pancreas is unremarkable. Right kidney: Normal. No mass. No hydronephrosis. US/US gall bladder [id number] IMPRESSION: Stable examination compared to 02/23/2021. Single large gallstone and chronic mild gallbladder wall thickening. No additional acute abnormality reported. If there is persistent suspicion for acute cholecystitis then further evaluation with HIDA scan may be considered.
[2023-06-23 21:18] LABS: Alanine Aminotransferase 6 U/L (0-33); Alkaline Phosphatase 69 U/L (35-105); Anion Gap 13.8 (5-19); Aspartate Amino Transferase 12 U/L (0-32); Blood Urea Nitrogen 14 mg/dL (6-20); Calcium 9.2 mg/dL (8.5-10.5); Carbon Dioxide 23 mmol/L (22-29); Chloride 105 mmol/L (98-107); Globulin 4.3 g/dL (1.3-4.6); Glomerular Filtration Rate 61.5 mL/min (90-130); Glucose 150 mg/dL (65-115); Lipase 18 U/L (13-60); Osmolality Calculated 287 mOsm/kg (285-295); Potassium 4.8 mmol/L (3.5-5.1); Sodium 137 mmol/L (136-145); Total Bilirubin 0.3 mg/dL (0.15-1.2); Total Protein 8.3 g/dL (6.6-8.7)
[2023-06-23 21:19] LABS: HCG, Serum Qual Negative (Negative)
[2023-06-23 21:48] VITALS: BP 132/87; PULSE 73; O2SAT 100
--- NOTE | 2023-06-23 21:51 | ED_ITS ---
HPI - Abdominal Pain 2 General: Chief Complaint: Abdominal Pain Stated Complaint: abd,fever Time Seen by Provider: 06/23/23 21:37 Source: patient Mode of arrival: ambulatory Limitations: no limitations History of Present Illness: 37-year-old female states that she has b een having right upper quadrant pain since 330 this afternoon. States she has had issues with her gallbladder in the past and this feels similar she states pain is sharp in nature rated 7 out of 10 she denies any worsening proving factors she has had some nausea and vomiting denies any diarrhea. Associated Symptoms: Reports nausea and vomiting; Denies chills, diarrhea, dysuria and fever(s) Review of Systems 2 Const: Denies: fever(s), chills, body aches or change in appetite ENMT: Denies: throat pain or dental pain Card: Denies: chest pain Resp: Denies: dyspnea GI: Reports: abdominal pain, nausea and vomiting; Denies: diarrhea : Denies: dysuria Musc: Denies: neck pain or back pain Skin/Breast: Denies: rash Neuro: Denies: headache(s) PFSH ED 2 PFSH: Social History Smoking and tobacco/nicotine status: current every day tobacco/nicotine user Physical Exam 2 Const: COMMON NORMALS: no acute distress, patient oriented x3 and healthy appearing HENMT: COMMON NORMALS: normocephalic and atraumatic HEAD & SCALP: n ormocephalic and atraumatic Neck/C-Spine: COMMON NORMALS: full ROM and supple Chest: COMMONS NORMALS: normal inspection of the chest Resp: COMMON NORMALS: normal respiratory effort Cardio: COMMON NORMALS: regular rate, regular rhythm and No murmurs present (Cardio) RATE: regular rate RHYTHM: regular rhythm GI: COMMON NORMALS: Normal to inspection, nondistended, normoactive bowel sounds present, Soft to palpation and no masses PALPATION: Yes Soft to palpation and Yes Tenderness to palpation present (GI) Details: RUQ Extremity: COMMON NORMALS: normal to inspection and full ROM Neuro: COMMON NORMALS: patient oriented x3, moves all extremities and no focal motor deficits Psych: COMMON NORMALS: mental status grossly normal, Normal thought process present and cooperative THOUGHT PROCESS: Normal thought process present Skin: COMMON NORMALS: no rashes or lesions noted and no wounds GENERAL SKIN EXAM: no rashes or lesions noted Course 2 Vital Signs: Vital signs: Vital Signs Temperature 97.8 F 06/23/23 20:11 Pulse Rate 78 06/23/23 22:36 Respiratory Rate 18 06/23/23 22:36 Blood Pressure 114/78 06/23/23 22:42 Pulse Oximetry 96 06/23/23 22:36 Oxygen Delivery Me thod Room Air 06/23/23 22:02 MDM - Abdominal Pain Medical Decision Making Patient presents here with right upper quadrant abdominal pain ultrasound showed gallstone no acute changes from previous her white count here is normal liver enzymes are normal she has no signs of acute cholecystitis we will start her on pain meds we will get her follow-up with surgery she likely is having biliary colic she is return if worsening she understands agrees to plan Medical Records I reviewed the patient's medical records. Lab Data I reviewed the patient's lab results. 06/23/23 20:50 06/23/23 20:50 Labs/Radiology: Radiology Impressions Gallbladder Ultrasound 06/23/23 21:17 IMPRESSION: Stable examination compared to 02/23/2021. Single large gallstone and chronic mild gallbladder wall thickening. No additional acute abnormality reported. If there is persistent suspicion for acute cholecystitis then further evaluation with HIDA scan may be considered. Laboratory Results WBC 6.69 10^3/uL (3.29-11.43) 06/23/23 20:50 RBC 4.95 10^6/uL (3.85-5.65) 06/23/23 20:50 Hgb 12.50 g/dL (11.27-16.99) 06/23/23 20:50 Hct 40.7 % (36-47) 06/23/23 20:50 MCV 82.2 fl (85-98) L 06/23/23 20:50 MCH 25.3 pg (27-33) L 06/23/23 20:50 MCHC 30.7 g/dL (30-55) 06/23/23 20:50 RDW 13.6 % (12.1-15.1) 06/23/23 20:50 Plt Count 374 10^3/cmm (157-399) 06/23/23 20:50 MPV 9.1 fL (7.4-10.4) 06/23/23 20:50 Neut % (Auto) 66.7 % 06/23/23 20:50 Lymph % (Auto) 25.3 % 06/23/23 20:50 [place] % (Auto) 6.0 % 06/23/23 20:50 Eos % (Auto) 1.0 % 06/23/23 20:50 Baso % (Auto) 0.6 % 06/23/23 20:50 Neut # (Auto) 4.46 10^3/uL (1.8-7.7) 06/23/23 20:50 Lymph # (Auto) 1.7 10^3/uL (0.8-4.8) 06/23/23 20:50 [place] # (Auto) 0.4 10^3/uL (0.2-0.9) 06/23/23 20:50 Eos # (Auto) 0.1 10^3/uL (0.0-0.8) 06/23/23 20:50 Baso # (Auto) 0.0 10^3/uL (0.0-0.1) 06/23/23 20:50 Nucleated RBC % (auto) 0 % 06/23/23 20:50 Nucleated RBCs # 0.0 /100WBC 06/23/23 20:50 Sodium 137 mmol/L (136-145) 06/23/23 20:50 Potassium 4.8 mmol/L (3.5-5.1) 06/23/23 20:50 Chloride 105 mmol/L (98-107) 06/23/23 20:50 Carbon Dioxide 23 mmol/L (22-29) 06/23/23 20:50 Anion Gap 13.8 (5-19) 06/23/23 20:50 BUN 14 mg/dL (6-20) 06/23/23 20:50 Creatinine 1.2 mg/dL (0.5-0.9) H 06/23/23 20:50 GFR Calculation 61.5 mL/min (90-130) L 06/23/23 20:50 Glucose 150 mg/dL (65-115) H 06/23/23 20:50 Calculated Osmolality 287 mOsm/kg (285-295) 06/23/23 20:50 Calcium 9.2 mg/dL (8.5-10.5) 06/23/23 20:50 Total Bilirubin 0.3 mg/dL (0.15-1.2) 06/23/23 20:50 AST 12 U/L (0-32) 06/23/23 20:50 ALT 6 U/L (0-33) 06/23/23 20:50 Alkaline Phosphatase 69 U/L (35-105) 06/23/23 20:50 Total Protein 8.3 g/dL (6.6-8.7) 06/23/23 20:50 Albumin 4.0 g/dL (3.5-5.2) 06/23/23 20:50 Globulin 4.3 g/dL (1.3-4.6) 06/23/23 20:50 Lipase 18 U/L (13-60) 06/23/23 20:50 HCG, Qual Negative (Negative) 06/23/23 20:50 All radiology interpretation(s) finalized by discharge Discharge Plan Discharge Patient Disposition: Home Clinical Impression: Cholelithiasis Abdominal pain Qualifiers: Abdominal location: right upper quadrant Qualified Code(s): R10.11 - Right upper quadrant pain Condition: Stable Prescriptions: New hydrocodone-acetaminophen 5-325 mg tablet 1 tab PO Q6H PRN (Reason: pain) Qty: 14 0RF ondansetron 4 mg tablet,disintegrating 4 mg PO Q6H PRN (Reason: nausea and vomiting) Qty: 14 0RF No Action hydrocodone-acetaminophen [[place]] 5-325 mg tablet 1 tab PO Q6H PRN (Reason: pain) Qty: 14 0RF aspirin 325 mg Tablet 325 mg PO Q4H PRN (Reason: Pain) Nexium 20 mg Capsule,Delayed Release(Dr/Ec) 20 mg PO DAILY Probiotic 2 cap PO DAILY hydrocodone-acetaminophen 5-325 mg tablet 1 tab PO Q6H PRN (Reason: pain) Qty: 20 0RF Zofran 4 mg tablet 4 mg PO Q6H PRN (Reason: nausea and vomiting) Qty: 20 0RF Discharge Orders: Discharge ED (Routine); Ordered 06/23/23 Ordered By: Dee Sheikh Referrals: Ridge Pandey MD [Physician] - 1-3 days Discharge Diet: Advance as tolerated Discharge Activity: Resume usual activity Patient Instructions: Abdominal Pain (ED), Opioid Safety Coding Level of Care Code ED Injection Molding Process Technician for Johnna Hernandez
[2023-06-23] MEDS: ondansetron 2 mg/ML SDV 2 mL 4 MG IVP (21:57)
[2023-06-23 21:59] VITALS: RESP 18; O2SAT 100
[2023-06-23] MEDS: morphine 4 mg/mL SDV 1 mL IVP (21:59)
[2023-06-23] MEDS: sodium chloride 0.9% 1,000 ML 999 ML IV (21:59)
[2023-06-23 22:02] VITALS: BP 140/95; PULSE 82; O2SAT 100
[2023-06-23 22:36] VITALS: PULSE 78; RESP 18; O2SAT 96
[2023-06-23 22:42] VITALS: BP 114/78
[2023-06-23] MEDS: HYDROcodone-acetaminophen 5-325 mg Tablet 1 TAB PO (23:16)
[2023-06-23 23:35] LABS: Add Urine Culture? No; Add Urine Microscopic? YES; Bacteria Urine TRACE /hpf; Bilirubin Urine Neg (Negative); Blood Urine 2+ (Negative); Glucose Urine UA Norm (Normal); Ketones Urine Negative (Negative); Leukocyte Esterase Urine Negative (Negative); Mucus Urine 2+ /hpf; Nitrate Urine Negative (Negative); Protein Urine Neg (Negative); Specific Gravity, Urine 1.025 (1.005-1.030); Squamous Epithelial Cell Urine 0-4 /hpf (0-5); Urine Appearance Clear (CLEAR); Urine Color Yellow (Yellow); Urobilinogen Urine Norm (Negative); WBC Urine 0-4 /hpf (0-5); pH Urine 5 (5-7)
--- NOTE | 2023-06-24 03:07 | DCPLANNER ---
Message sent to Gen Surg for referral to [facility].
== END 2023-06-23 23:22 | disposition home or self-care (01) ==
PROVIDERS: Emergency Provider Emergency Medicine
DX: K80.20 Calculus of gallbladder without cholecystitis without obstruction (principal); Z79.82 Long term (current) use of aspirin; Z72.0 Tobacco use
CPT/HCPCS: 36415; 76705; 80053; 81001; 83690; 84703; 85025; 96374; 96375; 99284; J2270; J2405; J7030

== ENCOUNTER 2023-07-18 11:10 | Day surgery (SDC) | payer OTHER, SELFPAY ==
[2023-07-18] VITALS (16 sets, daily range): BP systolic 78–139; BP diastolic 56–95; PULSE 8–99; RESP 14–27; TEMP 36.1–36.4; O2SAT 92–100; BMI 42.5
[2023-07-18 11:41] LABS: OR HCG Qualitative Urine Negative (Negative)
[2023-07-18] MEDS: scopolamine 1.5 Patch 1 PATCH TRANSDERMA (12:07)
[2023-07-18] MEDS: sodium chloride 0.9% 1,000 ML 30 ML IV (12:12)
[2023-07-18] MEDS: ondansetron 2 mg/ML SDV 2 mL 4 MG IVP (12:12)
--- NOTE | 2023-07-18 13:12 | ANES.PREANE2 ---
Pre-Anesthetic Assessment Height/Weight: Height 1.6 m Weight 109 kg Temp Pulse Resp BP Pulse Ox O2 Del Method 97.6 F 98 14 133/91 99 Room Air 07/18/23 11:30 07/18/23 11:30 07/18/23 11:30 07/18/23 11:30 07/18/23 11:30 07/18/23 11:43 Operation Date: 07/18/23 13:00 Proposed Procedures p 30509 lap irene K80.50(Not Applicable) - Ridge Pandey MD Familial anesthetic complications: none Was Beta Maranda taken within 24 hours: N/A Was Clonidine taken within 24 hours: N/A Last intake: Intake Last Liquid Date 07/18/23 Last Liquid Time 07:00 Last Solid Date 07/17/23 Last Solid Time 19:30 Social No alcohol and No tobacco Exam alert, oriented x 3, clear to auscultation bilaterally and regular rate & rhythm Airway Submandibular: within normal limits Cervical ROM: within normal limits Mallampati: Class II Dentition: full Metabolic Morbid Obesity Anesthetic Plan ASA status: 2 Anesthesia: General Medications/Allergies Home Medications Medication Instructions Recorded Confirmed Last Taken Type aspirin 325 mg tablet 325 mg PO Q4H PRN Pain 02/23/21 07/15/23 07/14/23 History ondansetron 4 mg disintegrating 4 mg PO Q6H PRN nausea and 06/23/23 07/15/23 07/08/23 Rx tablet vomiting #14 tabs Allergies Allergy/AdvReac Type Severity Reaction Status Date / Time No Known Allergies Allergy Verified 07/15/23 11:59 Current Medications Generic Name Dose Route Start Last Admin Trade Name Freq PRN Reason Stop Dose Admin Sodium Chloride 1,000 mls @ 30 mls/hr 07/18/23 11:30 07/18/23 12:12 Sodium Chloride 0.9% IV 07/19/23 11:29 30 mls/hr .Q24H FELICITY Administration Ondansetron HCl 4 mg 07/18/23 11:17 07/18/23 12:12 Ondansetron 2 Mg/Ml Sdv 2 Ml IVP 4 mg ONCE PRN Administration NAUSEA AND VOMITING PFSH Anesthesia Social History Smoking and tobacco/nicotine status: current every day tobacco/nicotine user Female Reproductive History Date of last menstrual period: 06/30/23 Data Anesthesia Cardiac Studies: No Data to Display
--- NOTE | 2023-07-18 13:51 | W.PM.OPSFHP ---
Same Day Surgery H&P Indication for Procedure/HPI DATE OF PROCEDURE: July 18, 2023 CHIEF COMPLAINT/INDICATIONFOR SURGICAL PROCEDURE: biliary colic PREOP DIAGNOSIS: biliary colic PLANNED PROCEDURE: Operation Date: 07/18/23 13:00 Proposed Procedures p 70179 lap irene K80.50(Not Applicable) - Ridge Pandey MD Medications/Allergies* Home Medications Medication Instructions Recorded Confirmed Type aspirin 325 mg tablet 325 mg PO Q4H PRN Pain 02/23/21 07/15/23 History Allergies/Adverse Reactions Allergy/AdvReac Type Severity Reaction Status Date / Time No Known Allergies Allergy Verified 07/15/23 11:59 Current Medications: Generic Name Dose Route Start Last Admin Trade Name Freq PRN Reason Stop Dose Admin Sodium Chloride 1,000 mls @ 30 mls/hr 07/18/23 11:30 07/18/23 12:12 Sodium Chloride 0.9% IV 07/19/23 11:29 30 mls/hr .Q24H FELICITY Administration Ondansetron HCl 4 mg 07/18/23 11:17 07/18/23 12:12 Ondansetron 2 Mg/Ml Sdv 2 Ml IVP 4 mg ONCE PRN Administration NAUSEA AND VOMITING Pertinent History/Comorbid Conditions* Social History Smoking and tobacco/nicotine status: current every day tobacco/nicotine user Pertinent Exam Findings alert, oriented x 3, clear to auscultation bilaterally and regular rate & rhythm Recommendations Surgery/Procedure today Coding Level of Care Code Acute Code for Chg Fwd
[2023-07-18] MEDS: ceFAZolin 2,000 MG in sodium chloride 0.9% (plus) 50 ML 100 MG IV (14:16)
[2023-07-18] MEDS: lidocaine-epi 1% 20 mL INJ INJECTION (14:47)
[2023-07-18] MEDS: BUPivacaine 0.25% INJ 10 mL INJECTION (14:47)
--- NOTE | 2023-07-18 16:42 | PM.OP ---
Operative Report Date of procedure: July 18, 2023 Pre-op diagnosis: Chronic cholecystitis Post-op diagnosis: Acute on chronic cholecystitis Post-op findings: Severely inflamed gallbladder, there was adhesions from the omentum to the infundibulum of the gallbladder and the hepatocystic triangle, due to severe inflammation there was significant thickening of the peritoneum layers at this level making it impossible dissection of the cystic duct. Procedure done: Laparoscopic subtotal cholecystectomy Specimens removed/disposition: Gallbladder Surgeon: Ridge Pandey MD Hvac Field Service Technician: lexi OR Staff Estimated blood loss: 15 Complications: none apparent Brief History: 37-year-old female who has been having biliary colic for the last 3 years presented to my clinic for evaluation for possible laparoscopic cholecystectomy. After discussion of risk and benefits as documented in my preop note we decided to proceed. Procedure: patient was brought into the OR. She was placed in the supine position, general esthesia was given. The abdomen was prepped and draped in the usual sterile fashion, timeout was conducted. The abdomen was accessed at Franco's point with a Optiview trocar. Initial laparoscopy showed no evidence of visceral injury, additional 12 mm trocar was placed in the supraumbilical position and 5 mm trocars in the epigastrium right upper quadrant and right flank positions under direct visualization. The gallbladder was elevated from the fundus and retracted cephalad, the gallbladder was noted to be acutely inflamed, it was difficult to grab send therefore I used a decompressing needle to remove some of the bile inside of the gallbladder. There was significant adhesions from the pericolonic fat and omentum to the infundibulum of the gallbladder and the hepatocystic triangle. I carefully took down the adhesions using electrocautery and blunt dissection. Once the dissection approach the level of the infundibulum I noted that the lesions were too severe and there was no clear anatomy to proceed with a safe dissection. I therefore proceeded to open the peritoneum anterior to the gallbladder at the level of the infundibulum, I carried this opening to the medial and lateral direction to the edges of the liver, I then proceeded to identify the cystic artery at the level of the insertion on the gallbladder, the cystic artery was individualize and retracted, I then proceeded to create a window behind the gallbladder between the gallbladder and the liver and I was able to elevate the lower third of the gallbladder from the liver bed, at this point I double clipped and transected the cystic artery. The window created behind the gallbladder was at the level of the infundibulum, once again after careful consideration it was noted that it would be impossible to dissect the cystic duct due to severe inflammation below this level. Therefore I decided to proceed with a subtotal cholecystectomy. I upsized the epigastric trocar to a 12 mm. Per my review of preoperative anatomy the gallbladder contained 2 stones 1 measuring 11 mm and the other 5 mm and needed needed to the neck. I then proceeded to milk the 5 mm stone from the neck of the gallbladder up to the level of the body, the 11 mm stone could be also felt at the level of the body of the gallbladder. I therefore felt comfortable and that no additional stones were located below this level. I used a 45 mm blue load Endo MAYNOR stapler to then transect the gallbladder at the level of the infundibulum, after transection no evidence of bleeding was noted no evidence of bile leak was noted. The gallbladder was then excised from the liver bed using electrocautery, the gallbladder was noted to be enteropathic and there was severe inflammation of the posterior wall of the gallbladder making dissection difficult. Once the specimen was removed I proceeded to irrigate the liver bed and aspirate. No evidence of bleeding or bile leak was noted. The gallbladder was retrieved through the umbilical port site. The umbilical port site was then closed with #0 Vicryl in a [id number] configuration using a suture passer under direct visualization. The epigastric, right upper quadrant and left upper quadrant trocars were then removed under direct visualization no bleeding was noted. I then proceeded to have a quite a pneumoperitoneum via the right flank trocar and this trocar was subsequently removed. The wounds were closed in layers using #2-0 Vicryl for the subcutaneous tissue and #4 Monocryl for the skin. Dermabond was applied. At the end of the procedure all counts were correct. Patient tolerated well the procedure and transferred to the PACU in stable condition.
[2023-07-18] MEDS: meperidine 50 mg/mL INJ 12.5 MG IVP (17:35)
[2023-07-18] MEDS: oxyCODONE-APAP 5-325 mg Tablet 1 TAB PO (18:13)
--- NOTE | 2023-07-19 06:49 | ANE.PACU2 ---
Inpatient post-anesthesia follow up: Airway intact: Yes Vital signs: Temperature 97.0 F Pulse Rate 85 Respiratory Rate 17 Blood Pressure 91/70 Pulse Oximetry 100 Oxygen Delivery Me thod Room Air Oxygen Flow Rate 4 Fraction of Inspir ed Oxygen Hydration adequate: Yes Nausea and vomiting: No Pain level: 3 Mental status: Baseline
== END 2023-07-18 18:41 | disposition home or self-care (01) ==
PROVIDERS: Anesthesiology; Visit Provider Surgery
PROC: 0FT44ZZ Resection of Gallbladder, Percutaneous Endoscopic Approach (ICD-10-PCS; CPT 47562; principal; 2023-07-18 12:50)
DX: K80.10 Calculus of gallbladder with chronic cholecystitis without obstruction (principal); E66.01 Morbid (severe) obesity due to excess calories; Z68.41 Body mass index [BMI] 40.0-44.9, adult; Z79.82 Long term (current) use of aspirin; F17.200 Nicotine dependence, unspecified, uncomplicated
CPT/HCPCS: 47562; 81025; 84703; 88304; J0690; J1100; J1170; J1200; J1885; J2175; J2250; J2405; J2704; J2710; J3010; J3490; J7030